=== PATIENT | female | born 1925 | race Caucasian/White ===

== ENCOUNTER 2017-01-17 10:32 | Emergency (ER) | payer MEDICARE, OTHER ==
[2017-01-17] MEDS ORDERED: SODIUM CHLORIDE 0.9% 1,000 ML IV STA (11:07)
--- NOTE | 2017-01-17 11:25 | ED ---
General Adult HPI - General Chief complaint: Fall Stated complaint: Fall Time Seen by Provider: 01/17/17 10:47 Source: EMS, RN notes reviewed Mode of arrival: EMS Limitations: altered mental status - History of Present Illness Initial comments: Patient 89-year-old female who presents emergency room today by EMS, with a chief complaint of a unwitnessed fall that occurred earlier today. Information provided by EMS stating that patient was found down next to her bed. States there was a check an approximate 45 minutes later she was found on the ground. Patient has no memory of the fall. States she remembers going to bed and sleeping. Patient at this time denies any headache. She does admit to some lower back pain and some pain into her legs bilaterally. Patient states she feels tired and sleepy. She denies any other complaints or symptoms. Patient denies any recent fever, chills, shortness of breath, chest pain, abdominal pain , nausea or vomiting, numbness or tingling, dysuria or hematuria, constipation or diarrhea, headaches or visual changes, or any other complaints. - Related Data Home Medications Medication Instructions Recorded Confirmed Aspirin EC [Ecotrin Low Dose] 81 mg PO DAILY 01/17/16 01/17/17 Lubiprostone [Amitiza] 24 mcg PO BID 01/17/16 01/17/17 sitaGLIPtin [Januvia] 50 mg PO DAILY 01/17/16 01/17/17 Cholecalciferol [Vitamin D3] 2,000 unit PO DAILY 11/17/16 01/17/17 Citalopram Hydrobromide [CeleXA] 10 mg PO DAILY@1200 11/17/16 01/17/17 Donepezil [Aricept] 10 mg PO HS 11/17/16 01/17/17 Isosorbide Mononitrate [Isosorbide 30 mg PO HS@199911/17/16 01/17/17 Mononitrate ER] LORazepam [Ativan] 0.5 mg PO BID@0800,199911/17/16 01/17/17 traMADol HCL [Ultram] 50 mg PO TID@0800,1400,199911/17/16 01/17/17 LORazepam [Ativan] 1 mg PO Q4H PRN 01/17/17 01/17/17 Lisinopril [Zestril] 10 mg PO DAILY 01/17/17 01/17/17 Magnesium Hydroxide [Milk of 2,400 mg PO HS PRN 01/17/17 01/17/17 Magnesia] Vitamin B-12 1000mcg Tab Sl 1,000 mcg SUBLINGUAL DAILY 01/17/17 01/17/17 Allergies Allergy/AdvReac Type Severity Reaction Status Date / Time alendronate sodium Allergy Unknown Verified 02/10/16 13:28 [From Fosamax] atorvastatin calcium Allergy Unknown Verified 02/10/16 13:28 [From Lipitor] Beef Containing Products Allergy Itching Verified 02/10/16 13:28 [Beef] chocolate flavor Allergy Itching Verified 02/10/16 13:28 ciprofloxacin [From Cipro] Allergy Unknown Verified 02/10/16 13:28 ciprofloxacin HCl Allergy Unknown Verified 02/10/16 13:28 [From Cipro] codeine Allergy Unknown Verified 02/10/16 13:28 diphenhydramine HCl Allergy Unknown Verified 02/10/16 13:28 [From Benadryl] hydralazine Allergy Unknown Verified 02/10/16 13:28 iodine Allergy Unknown Verified 02/10/16 13:28 latex Allergy Unknown Verified 02/10/16 13:28 morphine Allergy Unknown Verified 02/10/16 13:28 nickel Allergy Unknown Verified 02/10/16 13:28 nicotine [From Nicotrol] Allergy Unknown Verified 02/10/16 13:28 Penicillins Allergy Unknown Verified 02/10/16 13:28 Pork/Porcine Containing Allergy Itching Verified 02/10/16 13:28 Products [Pork] strawberry Allergy Itching Verified 02/10/16 13:28 Sulfa (Sulfonamide Allergy Unknown Verified 02/10/16 13:28 Antibiotics) Review of Systems ROS Statement: Those systems with pertinent positive or pertinent negative responses have been documented in the HPI. ROS Other: All systems not noted in ROS Statement are negative. Past Medical History Past Medical History: Diabetes Mellitus, Hyperlipidemia, Hypertension, Memory Impairment, Mitral Valve Prolapse (MVP), Osteoarthritis (OA) Additional Past Medical History / Comment(s): ddd lumbar region l4-l5 has gotten steroid inj in the past. rosacea,bronchitis, ulcer, hiatal hernia, constipation- partial obstruction , macular degeneration rt eye stated gets shots in her eye every 3 months History of Any Multi-Drug Resistant Organisms: None Reported Past Surgical History: Adenoidectomy, Appendectomy, Bladder Surgery, Cholecystectomy, Heart Catheterization With Stent, Hysterectomy Additional Past Surgical History / Comment(s): pt stated has a total of 5 stents , colonosocpy, rt knee arthroscopy, rt knee replacement thena revision d/t allergy to metal, cataracts Past Anesthesia/Blood Transfusion Reactions: No Reported Reaction Date of Last Stent Placement:: unk Past Psychological History: No Psychological Hx Reported Additional Psychological History / Comment(s): pt has been for 68 yers. she and her live at [facility] home. uses a wheeled/seated walker,denies any falls. Smoking Status: Never smoker Past Alcohol Use History: None Reported Past Drug Use History: None Reported - Past Family History Mother Family Medical History: Myocardial Infarction ([place]) Additional Family Medical History / Comment(s): at age 75-mi Father Family Medical History: Cancer Additional Family Medical History / Comment(s): leukemia Sister(s) Family Medical History: Cancer Additional Family Medical History / Comment(s): lung cancer Brother(s) Additional Family Medical History / Comment(s): brother age 5 from spinal mennigitits General Exam - General Exam Comments Initial Comments: General: The patient is awake and alert, in no distress, and does not appear acutely ill. Please use medication as discussed. Please follow-up with family doctor in the next 2 days of symptoms have not improved. Please return to emergency room if the symptoms increase or worsen or for any other concerns.currently C-collared resting in bed comfortably no signs of distress. Eye: Pupils are equal, round and reactive to light, extra-ocular movements are intact. No nystagmus. There is normal conjunctiva bilaterally. No signs of icterus. Ears, nose, mouth and throat: There are moist mucous membranes and no oral lesions. Neck: The neck is supple, there is no tenderness or JVD. Cardiovascular: There is a regular rate and rhythm. No murmur, rub or gallop is appreciated. Respiratory: Lungs are clear to auscultation, respirations are non-labored, breath sounds are equal. No wheezes, stridor, rales, or rhonchi. Gastrointestinal: Soft, non-distended, non-tender abdomen without masses or organomegaly noted. There is no rebound or guarding present. No CVA tenderness. Bowel sounds are unremarkable. Musculoskeletal: Normal ROM, no tenderness. Strength 5/5. Sensation intact. Pulses equal bilaterally 2+. Neurological: Patient alert and oriented to person and place. CN II-XII intact , There are no obvious motor or sensory deficits. Coordination appears grossly intact. Speech is normal. Skin: Skin is warm and dry and no rashes or lesions are noted. Psychiatric: Cooperative, appropriate mood & affect, normal judgment. Limitations: altered mental status Course Vital Signs 01/17/17 01/17/17 01/17/17 10:33 12:21 13:09 Temperature 98.5 F 97.9 F Pulse Rate 68 68 69 Respiratory 14 20 20 Rate Blood Pressure 184/79 131/59 113/89 O2 Sat by Pulse 95 94 L 96 Oximetry 01/17/17 14:30 Temperature Pulse Rate 65 Respiratory 18 Rate Blood Pressure 118/68 O2 Sat by Pulse 97 Oximetry EKG Findings - EKG Comments: EKG Findings:: EKG performed at 1129: Shows normal sinus rhythm at 60 bpm. NJ interval 182. QRS 66. QT/QTC 350/372. No acute ST changes. Medical Decision Making - Medical Decision Making Patient reexamined at this time shows no signs of distress. Patient's x-rays and CAT scans reviewed and are unremarkable. No acute abnormalities. Patient' s labs unremarkable. Her shins daughter at bedside stating that this is baseline for her. Patient is in assisted living. Patient will be discharged home advised follow-up family doctor or return to emergency room if any symptoms increase or worsen. - Lab Data Result diagrams: 01/17/17 11:27 01/17/17 11:27 Lab Results 01/17/17 01/17/17 01/17/17 Range/Units 11:27 11:27 11:27 WBC 7.9 (3.8-10.6) k/uL RBC 4.22 (3.80-5.40) m/uL Hgb 14.1 (11.4-16.0) gm/dL Hct 41.9 (34.0-46.0) % MCV 99.4 (80.0-100.0) fL MCH 33.5 (25.0-35.0) pg MCHC 33.7 (31.0-37.0) g/dL RDW 12.2 (11.5-15.5) % Plt Count 258 (150-450) k/uL Neutrophils % 64 % Lymphocytes % 27 % Monocytes % 4 % Eosinophils % 3 % Basophils % 1 % Neutrophils # 5.1 (1.3-7.7) k/uL Lymphocytes # 2.1 (1.0-4.8) k/uL Monocytes # 0.3 (0-1.0) k/uL Eosinophils # 0.2 (0-0.7) k/uL Basophils # 0.0 (0-0.2) k/uL PT (9.0-12.0) sec INR (<1.1) APTT (22.0-30.0) sec Sodium 140 (137-145) mmol/L Potassium 4.4 (3.5-5.1) mmol/L Chloride 103 (98-107) mmol/L Carbon Dioxide 26 (22-30) mmol/L Anion Gap 11 mmol/L BUN 19 H (7-17) mg/dL Creatinine 1.00 (0.52-1.04) mg/dL Est GFR (MDRD) Af Amer >60 (>60 ml/min/1.73 sqM) Est GFR (MDRD) Non-Af 52 (>60 ml/min/1.73 sqM) Glucose 108 H (74-99) mg/dL Calcium 10.2 (8.4-10.2) mg/dL Magnesium 1.7 (1.6-2.3) mg/dL Total Bilirubin 1.0 (0.2-1.3) mg/dL AST 24 (14-36) U/L ALT 32 (9-52) U/L Alkaline Phosphatase 62 (38-126) U/L Total Creatine Kinase 48 (30-135) U/L CK-MB (CK-2) 0.7 (0.0-2.4) ng/mL CK-MB (CK-2) Rel Index 1.5 Troponin I <0.012 (0.000-0.034) ng/mL Total Protein 7.6 (6.3-8.2) g/dL Albumin 4.3 (3.5-5.0) g/dL Urine Color Urine Appearance (Clear) Urine pH (5.0-8.0) Ur Specific [place] (1.001-1.035) Urine Protein (Negative) Urine Glucose (UA) (Negative) Urine Ketones (Negative) Urine Blood (Negative) Urine Nitrate (Negative) Urine Bilirubin (Negative) Urine Urobilinogen (<2.0) mg/dL Ur Leukocyte Esterase (Negative) Urine RBC (0-5) /hpf Urine WBC (0-5) /hpf Urine Mucus (None) /hpf 01/17/17 01/17/17 Range/Units 11:27 14:53 WBC (3.8-10.6) k/uL RBC (3.80-5.40) m/uL Hgb (11.4-16.0) gm/dL Hct (34.0-46.0) % MCV (80.0-100.0) fL MCH (25.0-35.0) pg MCHC (31.0-37.0) g/dL RDW (11.5-15.5) % Plt Count (150-450) k/uL Neutrophils % % Lymphocytes % % Monocytes % % Eosinophils % % Basophils % % Neutrophils # (1.3-7.7) k/uL Lymphocytes # (1.0-4.8) k/uL Monocytes # (0-1.0) k/uL Eosinophils # (0-0.7) k/uL Basophils # (0-0.2) k/uL PT 10.6 (9.0-12.0) sec INR 1.1 (<1.1) APTT 24.7 (22.0-30.0) sec Sodium (137-145) mmol/L Potassium (3.5-5.1) mmol/L Chloride (98-107) mmol/L Carbon Dioxide (22-30) mmol/L Anion Gap mmol/L BUN (7-17) mg/dL Creatinine (0.52-1.04) mg/dL Est GFR (MDRD) Af Amer (>60 ml/min/1.73 sqM) Est GFR (MDRD) Non-Af (>60 ml/min/1.73 sqM) Glucose (74-99) mg/dL Calcium (8.4-10.2) mg/dL Magnesium (1.6-2.3) mg/dL Total Bilirubin (0.2-1.3) mg/dL AST (14-36) U/L ALT (9-52) U/L Alkaline Phosphatase (38-126) U/L Total Creatine Kinase (30-135) U/L CK-MB (CK-2) (0.0-2.4) ng/mL CK-MB (CK-2) Rel Index Troponin I (0.000-0.034) ng/mL Total Protein (6.3-8.2) g/dL Albumin (3.5-5.0) g/dL Urine Color Yellow Urine Appearance Clear (Clear) Urine pH 6.5 (5.0-8.0) Ur Specific [place] 1.016 (1.001-1.035) Urine Protein Negative (Negative) Urine Glucose (UA) Negative (Negative) Urine Ketones Negative (Negative) Urine Blood Negative (Negative) Urine Nitrate Negative (Negative) Urine Bilirubin Negative (Negative) Urine Urobilinogen <2.0 (<2.0) mg/dL Ur Leukocyte Esterase Moderate H (Negative) Urine RBC 2 (0-5) /hpf Urine WBC 5 (0-5) /hpf Urine Mucus Rare H (None) /hpf Disposition Clinical Impression: Fall Disposition: HOME SELF-CARE Condition: Good Instructions: Fall Prevention for Older Adults (ED) Additional Instructions: Please follow-up the family doctor as discussed and return to emergency room if any symptoms increase or worsen or for any other concerns. Time of Disposition: 15:22
[2017-01-17 11:47] LABS: Basophils % (A) 1 %; CH 33.6; Eosinophils # (A) 0.2 k/uL (0-0.7); Eosinophils % (A) 3 %; HCT 41.9 % (34.0-46.0); HDW 2.27; HGB 14.1 gm/dL (11.4-16.0); Luc # (Auto) 0.21; Luc % (Auto) 3; Lymphocytes # (A) 2.1 k/uL (1.0-4.8); Lymphocytes % (A) 27 %; MCH 33.5 pg (25.0-35.0); MCHC 33.7 g/dL (31.0-37.0); MCV 99.4 fL (80.0-100.0); Mean Platelet Volume 6.9; Monocytes # (A) 0.3 k/uL (0-1.0); Monocytes % (A) 4 %; Neutrophils # (A) 5.1 k/uL (1.3-7.7); Neutrophils % (A) 64 %; RBC 4.22 m/uL (3.80-5.40); RDW 12.2 % (11.5-15.5); WBC 7.9 k/uL (3.8-10.6); WBC (Perox) 8.02
[2017-01-17 11:54] LABS: ALT 32 U/L (9-52); AST 24 U/L (14-36); Alkaline Phosphatase 62 U/L (38-126); Anion Gap 11 mmol/L; Blood Urea Nitrogen 19 mg/dL (7-17); Calcium 10.2 mg/dL (8.4-10.2); Carbon Dioxide 26 mmol/L (22-30); Chloride 103 mmol/L (98-107); Glucose 108 mg/dL (74-99); Magnesium 1.7 mg/dL (1.6-2.3); Non-African American GFR(MDRD) 52 (>60 ml/min/1.73 sqM); Potassium 4.4 mmol/L (3.5-5.1); Sodium 140 mmol/L (137-145); Total Protein 7.6 g/dL (6.3-8.2)
[2017-01-17 11:58] LABS: INR 1.1 (<1.1); Partial Thromboplastin Time 24.7 sec (22.0-30.0); Prothrombin Time 10.6 sec (9.0-12.0)
[2017-01-17 12:12] LABS: Creatine Kinase 48 U/L (30-135)
[2017-01-17 12:26] LABS: Creatine Kinase MB 0.7 ng/mL (0.0-2.4); Troponin I <0.012 ng/mL (0.000-0.034)
--- NOTE | 2017-01-17 13:13 | CT ---
EXAMINATION TYPE: CT brain jessi landon con DATE OF EXAM: 01/17/2017 11:53 AM COMPARISON: Previous CT scan of the brain dated 06/14/2009 HISTORY: Fall today with possible injury CT DLP: 1392.2 mGycm Automated exposure control for dose reduction was used. TECHNIQUE: CT scan of the brain and cervical spine are performed without contrast. FINDINGS: Brain: There are generalized changes of sulcal prominence and ventriculomegaly, compatible with atrop hic change. There is diffuse periventricular white matter lucency, compatible with chronic white vivi er ischemic change. There is no acute focal lesion, mass effect or midline shift identified. I do not see evidence of intracranial blood. There is vascular calcification present. Visualized portions of the paranasal sinuses and mastoids are clear. IMPRESSION: 1. NO ACUTE INTRACRANIAL ABNORMALITY. 2. ATROPHIC CHANGE. 3. CHRONIC WHITE MATTER ISCHEMIC CHANGE. Cervical spine: Visualized portions of the lungs are clear. There is some shotty cervical adenopathy. Prevertebral soft tissues are otherwise normal. Vertebral body height and alignment are maintained. Atlantoaxial relationships are normal. No fractur es are seen. There is degenerative disc disease, hypertrophic spondylosis and uncovertebral joint dis ease at C3-4, C4-5 and C5-6. IMPRESSION: 1. NO ACUTE OSSEOUS LESION. 2. DEGENERATIVE CHANGE.
--- NOTE | 2017-01-17 13:59 | XR ---
EXAMINATION TYPE: XR chest 2V DATE OF EXAM: 01/17/2017 1:54 PM COMPARISON: NONE INDICATION: 11/17/2016 TECHNIQUE: Single frontal view of the chest is obtained. FINDINGS: The heart size is normal. The pulmonary vasculature is normal. The lungs are clear. IMPRESSION: 1. No acute pulmonary process.
--- NOTE | 2017-01-17 14:01 | XR ---
EXAMINATION TYPE: XR lumbar spine 2 or 3V DATE OF EXAM: 01/17/2017 1:54 PM COMPARISON: NONE HISTORY: Pain, fall TECHNIQUE: 3 view lumbar spine FINDINGS: Scoliosis present with convexity to left centered at L3. There 5 lumbar-type tubal bodies. The pedicles are intact. There is a grade 1 spondylolisthesis of L4 anterior and L5. There is disc sp darren narrowing L3-4 L4-5. Mild narrowing of the L1-L2 space may be present. Spondylosis is present. Va scular calcifications within the aorta. IMPRESSION: 1. Degenerative disc changes greatest at L4-5 with a grade 1 spondylolisthesis.
--- NOTE | 2017-01-17 14:02 | XR ---
EXAMINATION TYPE: XR Hip Bilateral and AP pelvis DATE OF EXAM: 01/17/2017 1:54 PM COMPARISON: NONE HISTORY: Fall, pain TECHNIQUE: Bilateral hips supplemented with an AP pelvis FINDINGS: Femoral heads articulate with the acetabulum. No acute fractures are evident. Sacroiliac shiv int degenerative changes are present. Symphysis pubis is normal. Normal bowel gas is present. IMPRESSION: 1. Unremarkable pelvis and hips
[2017-01-17 15:14] LABS: Appearance,Urine Clear (Clear); Bilirubin,Urine Negative (Negative); Glucose,Urine (UA) Negative (Negative); Ketones,Urine Negative (Negative); Leukocyte Esterase,Urine Moderate (Negative); Mucus,Urine Rare /hpf; Nitrite,Urine Negative (Negative); PH, Urine 6.5 (5.0-8.0); Particle Count 1930; Protein,Urine Negative (Negative); RBC,Urine 2 /hpf (0-5); Specific Gravity,Urine 1.016 (1.001-1.035); UA Billing (MACRO vs. MICRO) MICRO; Urobilinogen,Urine <2.0 mg/dL (<2.0); WBC,Urine 5 /hpf (0-5)
[2017-01-17 15:46] VITALS: BP 112/75; PULSE 98; RESP 14; TEMP 97
== END 2017-01-17 16:33 | disposition home or self-care (01) ==
LOC: SUPCPDRO 10:32 → EC 10:32
DX: M54.5 Low back pain (principal); M79.605 Pain in left leg; M79.604 Pain in right leg; R41.82 Altered mental status, unspecified; F03.90 Unspecified dementia, unspecified severity, without behavioral disturbance, psychotic disturbance, mood disturbance, and anxiety; F22 Delusional disorders; R29.6 Repeated falls; W06.XXXA Fall from bed, initial encounter; Z91.02 Food additives allergy status; Z79.82 Long term (current) use of aspirin; Z79.899 Other long term (current) drug therapy; Z95.5 Presence of coronary angioplasty implant and graft; Z88.0 Allergy status to penicillin; Z88.5 Allergy status to narcotic agent; Z88.2 Allergy status to sulfonamides; Z88.8 Allergy status to other drugs, medicaments and biological substances; Z91.040 Latex allergy status
CPT/HCPCS: 36415; 70450; 71020; 72100; 72125; 73521; 80053; 81001; 82550; 82553; 83735; 84484; 85025; 85610; 85730; 87086; 93005; 96360; 96361; 99285

== ENCOUNTER 2017-01-22 15:08 | Inpatient (IN) | payer MEDICARE, OTHER ==
[2017-01-22 16:52] LABS: Glucose,Whole Blood 134 mg/dL (75-99)
[2017-01-22] MEDS ORDERED: MAGNESIUM HYDROXIDE 2,400 MG/10 ML CUP PO PRN (17:15)
[2017-01-22] MEDS ORDERED: ACETAMINOPHEN TAB 325 MG TAB PO PRN (17:38)
[2017-01-22] MEDS: SODIUM CHLORIDE 0.9% 1,000 ML IV SCH (17:40)
[2017-01-22 18:39] LABS: CH 33.8; CHCM 33.2; HDW 2.26; MCH 33.2 pg (25.0-35.0); MCHC 32.5 g/dL (31.0-37.0); MCV 102.3 fL (80.0-100.0); Macrocytosis Slight; Mean Platelet Volume 7.9; RBC 3.91 m/uL (3.80-5.40); RDW 12.2 % (11.5-15.5); WBC 7.9 k/uL (3.8-10.6)
[2017-01-22 18:52] LABS: ALT 30 U/L (9-52); AST 18 U/L (14-36); Alkaline Phosphatase 65 U/L (38-126); Anion Gap 11 mmol/L; Blood Urea Nitrogen 15 mg/dL (7-17); Calcium 9.7 mg/dL (8.4-10.2); Carbon Dioxide 24 mmol/L (22-30); Chloride 106 mmol/L (98-107); Glucose 102 mg/dL (74-99); Non-African American GFR(MDRD) 59 (>60 ml/min/1.73 sqM); Potassium 4.2 mmol/L (3.5-5.1); Sodium 141 mmol/L (137-145); Total Bilirubin 0.5 mg/dL (0.2-1.3); Total Protein 7.1 g/dL (6.3-8.2)
--- NOTE | 2017-01-22 19:19 | XR ---
EXAMINATION TYPE: XR shoulder complete LT DATE OF EXAM: 01/22/2017 7:08 PM COMPARISON: NONE HISTORY: Shoulder pain TECHNIQUE: 3 views FINDINGS: I see no fracture nor dislocation. Joint spaces are normal. There are no pathologic calcifi cations. IMPRESSION: Negative left shoulder exam.
--- NOTE | 2017-01-22 19:20 | XR ---
EXAMINATION TYPE: XR humerus RT DATE OF EXAM: 01/22/2017 7:08 PM COMPARISON: NONE HISTORY: Shoulder pain right arm pain TECHNIQUE: 2 views FINDINGS: I see no fracture nor dislocation. Elbow joint and shoulder joint appear intact. IMPRESSION: Negative right humerus exam.
--- NOTE | 2017-01-22 19:22 | XR ---
EXAMINATION TYPE: XR chest 2V DATE OF EXAM: 01/22/2017 7:08 PM COMPARISON: 01/17/2017 HISTORY: Recent falls. Chest pain. TECHNIQUE: Frontal and lateral views of the chest are obtained. FINDINGS: There is no heart failure nor confluent pneumonic infiltrate. There are no hilar masses. H eart size is normal. Thoracic aorta is atheromatous. There is no pleural effusion. IMPRESSION: No active cardiopulmonary disease. No change. No compression fracture seen.
[2017-01-22 19:46] LABS: Vitamin B12 >1000 pg/mL
--- NOTE | 2017-01-22 19:46 | CT ---
EXAMINATION TYPE: CT brain jessi wo con DATE OF EXAM: 01/22/2017 6:52 PM COMPARISON: 01/17/2017 HISTORY: Multiple falls CT DLP: 1580 mGycm Automated exposure control for dose reduction was used. TECHNIQUE: CT scan of the head and cervical spine are performed without contrast. FINDINGS: There is cerebral cortical atrophy. There is no mass effect nor midline shift. There is n o sign of intracranial hemorrhage. The calvarium is intact. The cervical vertebra have normal alignment. There is moderate narrowing of the disc spaces from C4 t o C7 with spurring of the endplates. Facet joints are intact. The skull base is intact. There is no s ign of a fracture. There is no evidence of a paraspinal mass. IMPRESSION: Cerebral atrophy and mild chronic small vessel ischemia. Mild normal pressure type hydrocephalus. No change compared to last exam. Moderate spondylosis in the mid and lower cervical spine. No fracture. No change.
[2017-01-22] MEDS: ISOSORBIDE MONONITRATE ER 30 MG TAB.ER.24H PO SCH (22:09)
[2017-01-22] MEDS: DONEPEZIL 10 MG TAB PO SCH (22:09)
[2017-01-22] MEDS: traMADol 50 MG TAB PO SCH (22:09)
[2017-01-22 22:59] LABS: Appearance,Urine Clear (Clear); Bilirubin,Urine Negative (Negative); Glucose,Urine (UA) Negative (Negative); Ketones,Urine Negative (Negative); Leukocyte Esterase,Urine Negative (Negative); Nitrite,Urine Negative (Negative); Protein,Urine Negative (Negative); Specific Gravity,Urine 1.008 (1.001-1.035); UA Billing (MACRO vs. MICRO) CHEM; Urobilinogen,Urine <2.0 mg/dL (<2.0)
[2017-01-23 08:01] LABS: Glucose,Whole Blood 95 mg/dL (75-99)
[2017-01-23] MEDS: LISINOPRIL 10 MG TAB PO SCH (08:17)
[2017-01-23] MEDS: ASPIRIN 81 MG CHEW PO SCH (08:17)
[2017-01-23] MEDS: traMADol 50 MG TAB PO SCH ×3 (08:18→21:16)
[2017-01-23] MEDS: LINAGLIPTIN 5 MG TABLET PO SCH (08:18)
[2017-01-23] MEDS: SODIUM CHLORIDE 0.9% 1,000 ML IV SCH (12:21)
[2017-01-23] MEDS: CITALOPRAM HYDROBROMIDE 10 MG TAB PO SCH (12:22)
[2017-01-23] MEDS: CHOLECALCIFEROL 1,000 UNIT TAB PO SCH (12:22)
[2017-01-23] MEDS: CYANOCOBALAMIN 500 MCG TAB PO SCH (12:22)
--- NOTE | 2017-01-23 15:56 | P.PN ---
Subjective 89-year-old female being seen. Patient is oriented to self only. Pleasant cooperative. Resting in bed. Physical therapy indicates that the patient needs maximum assist of 2 to stand or sit. Patient is not able to ambulate. Patient requires moderate assistance to maintain a standing balance. Patient has a tendency to lean. 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 She does not consistently follow simple commands. Patient reportedly has had episodes at home of frequent falling. Patient needs assistance with all ADLs. Patient needs a moderate assist of 2 to attempt to use assistive device such as rolling walker patient has poor comprehension of simple task Objective - Vital Signs Vital signs: Vital Signs Temp 97.1 F L 01/23/17 07:00 Pulse 64 01/23/17 15:37 Resp 18 01/23/17 15:37 BP 135/68 01/23/17 07:00 Pulse Ox 96 01/23/17 07:00 Intake & Output 01/22/17 01/23/17 01/23/17 18:59 06:59 18:59 Intake Total 240 Balance 240 Weight 52.5 kg Intake: Oral 240 Other: Voiding Method Bedside Commode Bedside Commode Bedside Commode Diaper Diaper Diaper Incontinent Incontinent Incontinent # Voids 1 2 1 # Bowel Movements 0 - Exam GENERAL APPEARANCE: 89-year-old female patient is alert, oriented to self only, in no acute distress. Cooperative pleasant does not consistently follow simple commands VITAL SIGNS: Reviewed HEENT: Head is normocephalic and atraumatic. Pupils are equal and reactive. The nares are patent. Oropharynx is clear without lesions. NECK: Supple without lymphadenopathy. Traches midline. HEART: S1, S2. Regular rate and rhythm. No murmur noted LUNGS: No crackles or wheezes are heard. On room air sats are 97% ABDOMEN: Soft, nontender, nondistended with good bowel sounds. No peritoneal signs. No palpable organomegaly or masses. EXTREMITIES: Normal skin color and turgor. No cyanosis, rash, ulceration, clubbing or edema. Radial pedal pulses are 2/4 bilaterally. Will move all extremities NEUROLOGICAL: No focal deficits. Strength and sensation are grossly intact. - Labs CBC & Chem 7: 01/22/17 18:05 01/22/17 18:05 Labs: Abnormal Lab Results - Last 24 Hours (Table) 01/22/17 01/22/1717 Range/Units 16:50 18:05 18:05 MCV 102.3 H (80.0-100.0) fL Glucose 102 H (74-99) mg/dL POC Glucose (mg/dL) 134 H (75-99) mg/dL Microbiology - Last 24 Hours (Table) 01/22/17 21:35 Urine Culture - Preliminary Urine,Voided Assessment and Plan Plan: Impression History of frequent falls Debilitated with limited mobility likely chronic Dementia with no behavior disturbance with cognitive impairment Inability to participate in ADLs due to dementia likely progressive Requires moderate assist with all ADL Physical debility gait imbalance Type 2 diabetes non-insulin Hypertension Depressive disorder nonspecified Plan PT OT eval Fall precautions Resume home meds as appropriate tin recovery worker to pursue the discharge plan possible transfer to subacute rehab DVT and GI prophylaxis The above dictated assessment and findings were discussed with dr chang . Impression and the plan of care have been dictated as directed. Mona Conway nurse practitioner acting as a scribe for dr chang
[2017-01-23] MEDS ORDERED: HEPARIN SODIUM,PORCINE 5,000 UNIT/ML 1 ML VIAL SQ SCH (16:00)
--- NOTE | 2017-01-23 19:40 | HP ---
DATE OF ADMISSION: 01/22/2017 CHIEF COMPLAINT: An 89-year-old white female with altered mental status. HISTORY OF PRESENT ILLNESS: This is 89-year-old white female presented with altered mental status after daily falls at home for the past 3 or 4 days with head concussion when she was not thinking straight or giving appropriate answers. She is unable to care for herself at home, unable to ambulate by herself and two-person assist. Fall every day due to altered mental status with head contusion and neck contusion. She was admitted to the hospital. CAT scan of the head and neck are ordered and neurologic consult is appreciated and ordered. She is unable to care for herself at home in any way and family unable to care for her anymore. They request placement into a rehab center at this time. She has a history of separate dementia, coronary artery disease, diabetes mellitus, hypertension, osteoarthritis, depression. ALLERGIES: SULFA STRAWBERRIES, PORK, PENICILLIN. NICOTINE, ( ) MORPHINE, LATEX, IODINE, HYDRALAZINE AND BENADRYL, CODEINE AND CIPRO, CHOCOLATE, BEEF, ATORVASTATIN AND FOSAMAX. 1. MEDICATIONS INCLUDE: 2. Zestril 10 mg daily. 3. Tradjenta 5 daily. 4. Imdur 30 mg daily. 5. Aricept 10 daily. 6. Celexa 10 daily. 7. Vitamin D 2000 daily. 8. Aspirin 81 daily. 9. Tramadol 50 t.i.d. REVIEW OF SYSTEMS: PSYCHIATRY: Alert and oriented x1, does talk and giving answers unclear at times what she is talking about. Not responding directly to the question and answering different questions. NEUROLOGIC: She can move her 4 extremities. She is weak 3/5 strength x4 extremities. INTEGUMENT: She has some various bruising over extremities. NECK: Supple. Decreased carotid sounds. Ophthalmologic: Pupils equal, round and reactive to light. VASCULAR: Normal dorsalis pedis, posterior tibial and radial pulse. Get up and go is greater than 30 seconds. 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 CARDIOVASCULAR: S1, S2; 2/6 systolic ejection murmur. LUNGS: Decreased breath sounds x4. Rales at the bases. VITAL SIGNS: Temperature 96.1. Blood pressure 116/70, O2 is 96% to 97% on room air. Pulse in the 60s. ASSESSMENT: 1. Altered mental status. 2. Concussion. 3. Cervical contusion. 4. Frequent falls. 5. Inability to perform ADLs/ general debility. 6. Needs PT, OT half-way placement. 7. Unable to care for herself. 8. Diabetes mellitus. 9. Hypertension. 10. Coronary artery disease. 11. Dementia. PLAN: Neurology consult was ordered. CT scan of the head and cervical spine has been ordered. By Dr. Russ's recommendation she will need half-way placement. She is unable to ambulate on her own or take care of herself and she has frequent falls on a daily basis with cervical contusion and concussion. Rule out intracranial bleed, rule out cervical injury. Please see further orders on the chart.
[2017-01-23] MEDS: DONEPEZIL 10 MG TAB PO SCH (21:16)
[2017-01-23] MEDS: ISOSORBIDE MONONITRATE ER 30 MG TAB.ER.24H PO SCH (21:17)
[2017-01-23] MEDS: FAMOTIDINE 20 MG TAB PO SCH (22:03)
[2017-01-24] MEDS: LINAGLIPTIN 5 MG TABLET PO SCH (08:00)
[2017-01-24 09:31] LABS: Cholesterol 207 mg/dL (<200); HDL Cholesterol 39 mg/dL (40-60); Triglycerides 230 mg/dL (<150)
[2017-01-24] MEDS: traMADol 50 MG TAB PO SCH ×3 (09:55→21:32)
[2017-01-24] MEDS: CHOLECALCIFEROL 1,000 UNIT TAB PO SCH (09:56)
[2017-01-24] MEDS: CYANOCOBALAMIN 500 MCG TAB PO SCH (09:56)
[2017-01-24] MEDS: CITALOPRAM HYDROBROMIDE 10 MG TAB PO SCH (09:56)
--- NOTE | 2017-01-24 09:57 | CONS ---
DATE OF CONSULTATION: 01/23/2017 CHIEF COMPLAINT: Altered mental status. HISTORY OF PRESENT ILLNESS: Mrs. Toribio is a pleasant, 89-year-old, female who is being evaluated today on 01/23/17 by the neurology service per the request of Dr. Ryder Hui for altered mental status. The patient was evaluated in the emergency room at [facility] after she was brought in for confusion. The patient does have history of Alzheimer's dementia, but she was more confused than usual. She was also having difficulty ambulating requiring maximum assist to stand up and walk. She has been having frequent falls and did injure her upper extremities with multiple falls. X-rays of the left shoulder and the right humerus were negative. A CT scan of the brain was done, which showed generalized atrophy and small vessel ischemic changes. There was mild changes consistent with normal pressure hydrocephalus. The patient has been having some urinary incontinence but this is not new according to the family. A CT scan of the cervical spine was done, which showed moderate spondylosis with no fracture seen. Her CBC, urinalysis, TSH, vitamin B12 level, and comprehensive metabolic profile were all reviewed and were within normal limits. At the time of my evaluation, she is lying in her bed and appears to be in no acute distress. Her family is at bedside and they report mild improvements in her symptoms since she arrived to the hospital as far as confusion is concerned. She is still having ambulatory issues. PAST MEDICAL HISTORY: Alzheimer's dementia, diabetes, hypertension, degenerative joint disease, depression. SOCIAL HISTORY: She denies any tobacco, alcohol or drug use. FAMILY HISTORY: Noncontributory. HOME MEDICATIONS: Reviewed in the chart. ALLERGIES: Multiple allergies reviewed in the chart. REVIEW OF SYSTEMS: CONSTITUTIONAL: Positive for fatigue. EYES: Positive for chronic diminished vision. ENT: Positive for chronic diminished hearing. CARDIOVASCULAR: Negative. RESPIRATORY: Negative. NEUROLOGICAL: As mentioned above. She denies any lateralizing numbness or weakness. GASTROINTESTINAL: Negative. GENITOURINARY: As mentioned above. MUSCULOSKELETAL: As mentioned above. DERMATOLOGICAL: Negative. ENDOCRINE: Positive for diabetes. PSYCHIATRIC: Positive for history of depression. PHYSICAL EXAM: Vital signs show a temperature of 97.0, pulse 64, respirations 18, blood pressure 131/73. GENERAL APPEARANCE: The patient is a well-developed, elderly female who appears to be in no acute distress. HEENT: Normocephalic, atraumatic, no facial asymmetry is seen. Neck is supple with no masses felt. Tenderness to palpation is felt along the posterior lower cervical spine. CARDIOVASCULAR: Regular rate and rhythm. ABDOMEN: Nontender, nondistended. Extremities showed no edema or clubbing. NEUROLOGICAL EXAM: The patient is alert, awake, and oriented to person and place. She could not recall the year. She moves all 4 extremities to command with no lateralizing weakness seen. She does have generalized weakness that is mild. Sensory exam was normal to light touch in all 4 extremities. Mild postural tremors are seen. No facial asymmetry is noticed on cranial nerve testing. IMPRESSION: 1. Altered mental status. 2. Acute on top of chronic encephalopathy. 3. Alzheimer's dementia. 4. Cervicalgia. 5. Gait instability. 6. Recurrent falls. RECOMMENDATIONS: The patient's altered mental status is improving as she is closer to her baseline. She is oriented to person and place at the time of my evaluation. The patient does have history of chronic encephalopathy with Alzheimer's dementia. Continue IV hydration as tolerated. An EEG has been ordered. I did review her CT scan of the brain, which showed no acute findings. She does have evidence of mild case of normal pressure hydrocephalus, but the patient has been having urinary incontinence for a long time according to the family. In the outpatient setting, I will consider performing a large-volume drainage lumbar puncture to monitor any improvement especially because she has been having gait instability more recently. I do believe her recent falls are due to her recently been started on benzodiazepines. I recommend discontinuing Ativan as this has been linked to frequent falls in the elderly population. Physical therapy will be consulted. Continue aspirin for her small vessel ischemic disease. Continue neuro checks. I will continue to follow with you. Further recommendations to follow. Thank you, Dr. Hui, for allowing me to participate in the care of your patient. If you have any questions, please call free to contact me.
[2017-01-24] MEDS: ASPIRIN 81 MG CHEW PO SCH (09:58)
[2017-01-24] MEDS: LISINOPRIL 10 MG TAB PO SCH (09:58)
[2017-01-24 11:01] LABS: Hemoglobin A1C 5.7 % (4.2-6.1)
--- NOTE | 2017-01-24 11:21 | P.PN ---
Subjective 89-year-old female being seen with the attending on rounds this morning is awake and alert oriented to person and place. Has no recall of event. There is no lateralizing weakness noted. Patient currently is resting in bed. The discharge plan is in progress patients being evaluated for subacute rehab PT OT eval has been initiated. Patient's been seen by neurology. CAT scan of the brain showed no acute findings does have evidence of mild normal pressure hydrocephalus neurology believes her recent falls are due to her recently been started on benzodiazepine. The recommending stopping the Ativan as this has been linked to frequent falls in the elderly population. Additionally they recommend considering performing a large-volume drainage of the lumbar spine to monitor any improvement especially she's been having gait and stable mobility multiple recently Objective - Vital Signs Vital signs: Vital Signs Temp 96.6 F L 01/24/17 07:00 Pulse 59 L 01/24/17 07:00 Resp 20 01/24/17 07:00 BP 132/73 01/24/17 07:00 Pulse Ox 96 01/24/17 07:00 Intake & Output 01/23/17 01/24/17 01/24/17 18:59 06:59 18:59 Intake Total 240 500 240 Balance 240 500 240 Intake: Oral 240 500 240 Other: Voiding Method Bedside Commode Diaper Diaper Incontinent Incontinent # Voids 1 2 # Bowel Movements 0 - Exam GENERAL APPEARANCE: 89-year-old female patient is alert, oriented to self and place, in no acute distress. Cooperative pleasant does not consistently follow simple commands VITAL SIGNS: Reviewed HEENT: Head is normocephalic and atraumatic. Pupils are equal and reactive. The nares are patent. Oropharynx is clear without lesions. NECK: Supple without lymphadenopathy. Traches midline. HEART: S1, S2. Regular rate and rhythm. No murmur noted denying chest pain LUNGS: No crackles or wheezes are heard. On room air sats are 97% no cough noted no shortness breath with conversation ABDOMEN: Soft, nontender, nondistended with good bowel sounds. No peritoneal signs. No palpable organomegaly or masses. Incontinent a urine EXTREMITIES: Normal skin color and turgor. No cyanosis, rash, ulceration, clubbing or edema. Radial pedal pulses are 2/4 bilaterally. Will move all extremities NEUROLOGICAL: No focal deficits. Strength and sensation are grossly intact. - Labs CBC & Chem 7: 01/22/17 18:05 01/22/17 18:05 Labs: Abnormal Lab Results - Last 24 Hours (Table) 01/22/17 01/24/17 Range/Units 18:05 08:55 Triglycerides 230 H (<150) mg/dL Cholesterol 207 H (<200) mg/dL LDL Cholesterol, Calc 122 H (0-99) mg/dL HDL Cholesterol 39 L (40-60) mg/dL RBC Folate 877 H (280 - 791) ng/mL Microbiology - Last 24 Hours (Table) 01/22/17 21:35 Urine Culture - Preliminary Urine,Voided Assessment and Plan Plan: Impression History of frequent falls Debilitated with limited mobility likely chronic Alzheimer Dementia with no behavior disturbance with cognitive impairment Inability to participate in ADLs due to dementia likely progressive Requires moderate assist with all ADL Physical debility gait imbalance Type 2 diabetes non-insulin Hypertension Depressive disorder nonspecified Acute on chronic encephalopathy CAT scan of the brain evidence of mild case of normal pressure hydrocephalus Recent falls likely due to recently been started on benzodiazepine contributing to the frequent falls in the elderly population CAT scan of the brain small vessel ischemia disease Plan PT OT eval Fall precautions Resume home meds as appropriate mat worker to pursue the discharge plan possible transfer to subacute rehab DVT and GI prophylaxis No benzodiazepine The above dictated assessment and findings were discussed with dr chang . Impression and the plan of care have been dictated as directed. Mona Conway nurse practitioner acting as a scribe for dr chang
[2017-01-24] MEDS: SODIUM CHLORIDE 0.9% 1,000 ML IV SCH (15:35)
--- NOTE | 2017-01-24 16:44 | P.PN ---
Subjective Principal diagnosis: Patient is a pleasant 89-year-old female who is being followed by the neurology service for altered mental status. Patient was brought to the emergency room with difficulty ambulating and mental confusion. Patient does have history of Alzheimer's dementia. Computed tomography scan of the brain was done which showed generalized atrophy and small vessel ischemic changes. CT also revealed mild changes consistent with normal pressure hydrocephalus. At the time of my evaluation, patient is resting in bed and appears to be in no acute distress. Objective - Vital Signs Vital signs: Vital Signs Temp 98.1 F 01/24/17 15:00 Pulse 69 01/24/17 15:00 Resp 20 01/24/17 15:00 BP 121/71 01/24/17 15:00 Pulse Ox 95 01/24/17 15:00 Intake & Output 01/23/17 01/24/17 01/24/17 18:59 06:59 18:59 Intake Total 240 500 480 Balance 240 500 480 Intake: Oral 240 500 480 Other: Voiding Method Bedside Commode Diaper Diaper Diaper Incontinent Incontinent Incontinent # Voids 1 2 3 # Bowel Movements 0 0 - Exam PHYSICAL EXAM: GENERAL APPEARANCE: Patient is a well-developed, female who appears to be in no acute distress. HEENT: Normocephalic, atraumatic, no facial asymmetry is seen. Neck is supple with no masses felt. CARDIOVASCULAR: Regular rate and rhythm. ABDOMEN: Nontender, nondistended. EXTREMITIES: Show no edema or clubbing. NEUROLOGICAL EXAM: Patient is awake, alert, and oriented to person and place. Patient could not tell me the year. Patient moves all 4 extremities on command with no lateralizing weakness seen. Sensory exam is normal to light touch in all 4 extremities. No facial asymmetry is seen on cranial nerve testing. Mild postural tremors are noted. No seizure-like activity is seen. - Labs CBC & Chem 7: 01/22/17 18:05 01/22/17 18:05 Labs: Abnormal Lab Results - Last 24 Hours (Table) 01/22/17 01/24/17 Range/Units 18:05 08:55 Triglycerides 230 H (<150) mg/dL Cholesterol 207 H (<200) mg/dL LDL Cholesterol, Calc 122 H (0-99) mg/dL HDL Cholesterol 39 L (40-60) mg/dL RBC Folate 877 H (280 - 791) ng/mL Microbiology - Last 24 Hours (Table) 01/22/17 21:35 Urine Culture - Final Urine,Voided Assessment and Plan Plan: Pressure and: 1. Altered mental status 2. Acute on chronic encephalopathy. 3. Alzheimer's dementia 4. Cervicalgia 5. Gait instability 6. Recurrent falls Recommendations: Patient's altered mental status is improving. As previously mentioned, patient does have history of chronic encephalopathy with Alzheimer's dementia. EEG was done and results are pending. Her computed tomography scan of the brain did show evidence of mild normal pressure hydrocephalus. This can be worked up further in the outpatient setting. She may need a large volume drainage lumbar puncture and monitoring for improvement in gait disturbance. I recommend continuing to hold benzodiazepines. Continue with physical therapy. Continue aspirin for small vessel ischemic disease. Continue neurological checks. I will continue to follow with you. Further recommendations to follow. I performed an examination of the patient and discussed the management with the CIGAR BRANDER. I have reviewed the CIGAR BRANDER notes and agree with the findings and plan of care.
[2017-01-24] MEDS: DONEPEZIL 10 MG TAB PO SCH (20:57)
[2017-01-24] MEDS: FAMOTIDINE 20 MG TAB PO SCH (20:57)
[2017-01-24] MEDS: ISOSORBIDE MONONITRATE ER 30 MG TAB.ER.24H PO SCH (21:33)
[2017-01-25] MEDS: SODIUM CHLORIDE 0.9% 1,000 ML IV SCH ×2 (05:00→20:00)
[2017-01-25] MEDS: ASPIRIN 81 MG CHEW PO SCH (08:35)
[2017-01-25] MEDS: traMADol 50 MG TAB PO SCH ×3 (08:36→20:01)
[2017-01-25] MEDS: LISINOPRIL 10 MG TAB PO SCH (08:36)
[2017-01-25] MEDS: LINAGLIPTIN 5 MG TABLET PO SCH (08:36)
--- NOTE | 2017-01-25 09:45 | P.DS ---
Providers Date of admission: 01/22/17 16:01 Expected date of discharge: 01/25/17 Attending physician: Ryder Hui Consults: 01/22/17 17:27 Consult Physician Stat Consulting Provider: Yash Russ Consult Reason/Comments: encephalopathy Do you want consulting provider notified?: Yes Primary care physician: [facility] Course: 89-year-old female presented with altered mental status with a history of daily falls at home for the past 3-4 days. According to the family patient has not been able to care for herself at home was not able to ambulate takes the assist of 2 people. According to the family the patient has been falling frequently .CAT scan of the brain showed no acute findings does have evidence of mild normal pressure hydrocephalus neurology believes her recent falls are due to her recently been started on benzodiazepine. The recommending stopping the Ativan as this has been linked to frequent falls in the elderly population. Additionally they recommend considering performing a large-volume drainage of the lumbar spine to monitor any improvement especially she's been having gait and stable mobility multiple episodes of falling. Recommended continuing aspirin for small vessel ischemic disease. Patient was seen by physical and occupational therapy was recommended subacute rehab with fall precautions Patient was felt to be hemodynamically stable and appropriate proceed with a transfer to the [facility] facility Patient has been pleasant cooperative with no behavior disturbance Impression History of frequent falls Debilitated with limited mobility likely chronic Alzheimer Dementia with no behavior disturbance with cognitive impairment Inability to participate in ADLs due to dementia likely progressive Requires moderate assist with all ADL Physical debility gait imbalance Type 2 diabetes non-insulin Hypertension Depressive disorder nonspecified Acute on chronic encephalopathy CAT scan of the brain evidence of mild case of normal pressure hydrocephalus Recent falls likely due to recently been started on benzodiazepine contributing to the frequent falls in the elderly population CAT scan of the brain small vessel ischemia disease The above dictated assessment and findings were discussed with Dr. Hui]. Impression and the plan of care have been dictated as directed. Mona Conway nurse practitioner acting as a scribe for Dr. Hui Plan - Discharge Summary New Discharge Prescriptions: traMADol HCl [Ultram] 50 mg PO TID@0800,1400,2000 PRN #30 tab PRN Reason: Mild Pain Discharge Medication List Aspirin EC [Ecotrin Low Dose] 81 mg PO DAILY@0800 01/17/16 [History] Lubiprostone [Amitiza] 24 mcg PO BID@0800,199901/17/16 [History] sitaGLIPtin [Januvia] 50 mg PO DAILY@0801/17/16 [History] Cholecalciferol [Vitamin D3] 2,000 unit PO DAILY 11/17/16 [History] Citalopram Hydrobromide [CeleXA] 10 mg PO DAILY@1200 11/17/16 [History] Donepezil [Aricept] 10 mg PO HS@199911/17/16 [History] Isosorbide Mononitrate [Isosorbide Mononitrate ER] 30 mg PO HS@199911/17/16 [ History] traMADol HCL [Ultram] 50 mg PO TID@0800,1399,199911/17/16 [History] Lisinopril [Zestril] 10 mg PO DAILY@0800 01/17/17 [History] Magnesium Hydroxide [Milk of Magnesia] 2,400 mg PO HS PRN 01/17/17 [History] Vitamin B-12 1000mcg Tab Sl 1,000 mcg SUBLINGUAL DAILY@0801/17/17 [History] Acetaminophen Tab [Tylenol] 325 mg PO TID@0800,1399,199901/22/17 [History] Acetaminophen [Tylenol] 325 mg PO Q6H PRN 01/22/17 [History] traMADol HCl [Ultram] 50 mg PO TID@0800,1399,1999 PRN #30 tab 01/25/17 [Rx] Follow up Appointment(s)/Referral(s): Yash Russ MD [STAFF PHYSICIAN] - 1 Week Ryder Hui MD [Primary Care Provider] - 1 Week Discharge Disposition: TRANSFER TO SNF/ECF
[2017-01-25] MEDS: CHOLECALCIFEROL 1,000 UNIT TAB PO SCH (12:00)
[2017-01-25] MEDS: CITALOPRAM HYDROBROMIDE 10 MG TAB PO SCH (12:00)
[2017-01-25] MEDS: CYANOCOBALAMIN 500 MCG TAB PO SCH (12:00)
[2017-01-25 12:18] LABS: Glucose,Whole Blood 115 mg/dL (75-99)
--- NOTE | 2017-01-25 14:34 | P.PN ---
Subjective Principal diagnosis: Patient is a pleasant 89-year-old female who is being followed by the neurology service for altered mental status. Patient was brought to the emergency room with difficulty ambulating and mental confusion. Patient does have history of Alzheimer's dementia. Computed tomography scan of the brain was done which showed generalized atrophy and small vessel ischemic changes. CT also revealed mild changes consistent with normal pressure hydrocephalus which can be worked up as an outpatient. At the time of my evaluation today, patient neurological exam has changed from yesterday. Patient is less responsive and is not conversant. Patient is going for a stat computed tomography scan of the brain. Objective - Vital Signs Vital signs: Vital Signs Temp 97.2 F L 01/25/17 12:45 Pulse 72 01/25/17 12:45 Resp 14 01/25/17 12:45 BP 123/73 01/25/17 07:00 Pulse Ox 98 01/25/17 12:45 Intake & Output 01/24/17 01/25/17 01/25/17 18:59 06:59 18:59 Intake Total 480 Balance 480 Intake: Oral 480 Other: Voiding Method Diaper Diaper Diaper Incontinent Incontinent Incontinent # Voids 1 1 # Bowel Movements 0 - Exam PHYSICAL EXAM: GENERAL APPEARANCE: Patient is a well-developed, female HEENT: Normocephalic, atraumatic, no facial asymmetry is seen. Neck is supple with no masses felt. CARDIOVASCULAR: Regular rate and rhythm. ABDOMEN: Nontender, nondistended. EXTREMITIES: Show no edema or clubbing. NEUROLOGICAL EXAM: Patient is awake but is nonverbal at this time. Patient moves all 4 extremities purposefully. Patient is not following commands. Unable to obtain sensory exam. No lateralizing weakness is seen. No obvious facial droop is noted. No tremors or seizure-like activity is seen. - Labs CBC & Chem 7: 01/22/17 18:05 01/22/17 18:05 Labs: Abnormal Lab Results - Last 24 Hours (Table) 01/25/17 Range/Units 12:06 POC Glucose (mg/dL) 115 H (75-99) mg/dL Microbiology - Last 24 Hours (Table) 01/22/17 21:35 Urine Culture - Final Urine,Voided Assessment and Plan Plan: Pressure and: 1. Altered mental status 2. Acute on chronic encephalopathy. 3. Alzheimer's dementia 4. Cervicalgia 5. Gait instability 6. Recurrent falls Recommendations: Patient's altered mental status was greatly improved this morning according to staff. As previously mentioned, patient does have history of chronic encephalopathy with Alzheimer's dementia. Due to sudden change in mentation, stat computed tomography scan is being done. As previously mentioned , no signs of lateralizing weakness or facial droop noted. Patient is afebrile. Vital signs are stable. EEG was done and results are pending. Her previous computed tomography scan of the brain did show evidence of mild normal pressure hydrocephalus. This can be worked up further in the outpatient setting. She may need a large volume drainage lumbar puncture and monitoring for improvement in gait disturbance. I recommend continuing to hold benzodiazepines. A psychiatric evaluation has been ordered. If all testing is negative, patient would be cleared for transfer to rehab from neurology standpoint. Continue with physical therapy. Continue aspirin for small vessel ischemic disease. Continue neurological checks. I will continue to follow with you. Further recommendations to follow. I performed an examination of the patient and discussed the management with the STAINED GLASS INSTALLER. I have reviewed the STAINED GLASS INSTALLER notes and agree with the findings and plan of care.
--- NOTE | 2017-01-25 15:10 | CT ---
EXAMINATION TYPE: CT brain wo con DATE OF EXAM: 01/25/2017 3:03 PM COMPARISON: 2116 HISTORY: Patient unresponsive at time of exam. Patient shows signs of altered mental status. CT DLP: [address] of the brain was performed. The ventricles, basal cisterns and sulci overlying the cerebral convexities demonstrate mild to moder ate enlargement. There is no evidence for intracranial hemorrhage or sulcal effacement. There is decreased attenuation about the periventricular white matter and deep white matter of both c erebral hemispheres, compatible with chronic small vessel ischemia. Differential diagnosis does inclu de demyelination. No mass effects are seen.No midline shift. Osseous calvarium is intact. If symptoms persist consider MRI. IMPRESSION: 1. Age related atrophic and chronic small vessel ischemic change without acute intracranial process s een at this time.
[2017-01-25 15:11] LABS: Basophils # (A) 0.1 k/uL (0-0.2); Basophils % (A) 1 %; CH 33.3; CHCM 33.7; Eosinophils # (A) 0.3 k/uL (0-0.7); Eosinophils % (A) 4 %; HCT 39.4 % (34.0-46.0); HDW 2.28; HGB 13.1 gm/dL (11.4-16.0); Luc # (Auto) 0.19; Luc % (Auto) 2; Lymphocytes # (A) 1.7 k/uL (1.0-4.8); Lymphocytes % (A) 19 %; MCH 33.1 pg (25.0-35.0); MCHC 33.3 g/dL (31.0-37.0); MCV 99.4 fL (80.0-100.0); Mean Platelet Volume 7.6; Monocytes # (A) 0.4 k/uL (0-1.0); Monocytes % (A) 4 %; Neutrophils # (A) 6.1 k/uL (1.3-7.7); Neutrophils % (A) 70 %; RBC 3.96 m/uL (3.80-5.40); RDW 12.3 % (11.5-15.5); WBC 8.7 k/uL (3.8-10.6); WBC (Perox) 9.26
[2017-01-25 15:23] LABS: ALT 16 U/L (9-52); AST 13 U/L (14-36); Alkaline Phosphatase 55 U/L (38-126); Anion Gap 10 mmol/L; Blood Urea Nitrogen 20 mg/dL (7-17); Calcium 9.2 mg/dL (8.4-10.2); Carbon Dioxide 22 mmol/L (22-30); Chloride 108 mmol/L (98-107); Glucose 100 mg/dL (74-99); Non-African American GFR(MDRD) 56 (>60 ml/min/1.73 sqM); Potassium 4.2 mmol/L (3.5-5.1); Sodium 140 mmol/L (137-145); Total Bilirubin 0.5 mg/dL (0.2-1.3); Total Protein 6.4 g/dL (6.3-8.2)
[2017-01-25 15:59] VITALS: RESP 20
[2017-01-25] MEDS: ISOSORBIDE MONONITRATE ER 30 MG TAB.ER.24H PO SCH (19:49)
[2017-01-25] MEDS: FAMOTIDINE 20 MG TAB PO SCH (20:01)
[2017-01-25] MEDS: DONEPEZIL 10 MG TAB PO SCH (20:01)
[2017-01-26 08:01] VITALS: BP 104/66; PULSE 70; TEMP 97.8
[2017-01-26] MEDS: traMADol 50 MG TAB PO SCH ×2 (09:55→13:46)
--- NOTE | 2017-01-26 10:09 | CONS ---
DATE OF CONSULTATION: 01/26/2017 REASON FOR CONSULTATION: Psychosis. HISTORY OF PRESENT ILLNESS: Patient is 89, , female who was living in assisted living with her of more than 50 years, was brought to the hospital after she was found more confused. Patient does have history of Alzheimer's dementia, but it seems that she was more confused than usual. She has been having frequent falls and complete workup including x-ray of the left shoulder and the right humerus were negative. CT scan of the brain showed atrophy. All blood workup including vitamin B12 and TSH were within normal limits. At the time of my evaluation, patient was lying in her bed. She stated that she is very cold. She is very pleasant. She talked in detail about living with her best friend and it seems that this is her and she said, "We keep each other company and we play cards and I cannot live without him". When I did ask her how many kids they have, she said "between him and I we have 22 children". There is no aggressive or combative behavior. REGARDING HER PAST PSYCHIATRIC HISTORY. I am not able to find any past psychiatric history, but it seems that the patient has been taking Celexa or citalopram 10 mg daily, Aricept 10 mg at bedtime and Ativan 0.5 twice a day p.r.n. PAST MEDICAL HISTORY: Diabetes, hypertension, Alzheimer's dementia. Her home medications are: 1. Aspirin. 2. Vitamin D3, 2000 units. 3. Aricept 10 mg at bedtime. 4. Vitamin B12, 1000 mcg once a day. 5. Pepcid 20 mg. 6. Lisinopril 10 mg daily. 7. Linagliptin 5 mg daily. 8. Imdur 30 mg at bedtime. 9. Tramadol at 50 mg 3 times a day. 10. At home, she was on Januvia 50 mg daily. SUBSTANCE ABUSE HISTORY: Patient never smoked and there is no previous history of alcohol or drug use. FAMILY HISTORY: Patient is not able to give any information about history of depression or anxiety in her family. MENTAL STATUS EXAMINATION: Patient is very pleasant elderly female. She was alert, awake. She stated that she was feeling cold. She is oriented to person. Regarding the place, she thought that she was in different apartment. She could not recall the day or the year. Her Mini-Mental Status score it is 9 from 30. Patient talked and perseverate about relationship with her . Also she talked about her attending Dr. Ryder Hui and she said more than once "I do trust him 100%". She denied any suicidal or homicide ideation. She stated that she has been not eating or sleeping for the last couple of days and when I did ask her the reason she said, "My friend that I was living with him will not be with me". Her insight and judgment are impaired. From the nursing staff I was informed that the patient was told yesterday that she is not going back to the assisted living to stay with her she has to go to physical rehab facility to improve her gait and to prevent frequent falls and when she did realize this yesterday she started getting depressed and this is explained why she has been having difficulty sleeping last night with poor appetite. IMPRESSION: 1. Delirium reaction, resolved. 2. Major neurocognitive disorder with depressed mood. RECOMMENDATION: I do recommend to avoid any benzodiazepine with the patient as this will make her more confused. Also to try to cut down the Ultram ( ) not recommended to the geriatric population. The patient has history of chronic encephalopathy with Alzheimer's dementia and seemed late stage so to continue her on Aricept. I discontinued citalopram and I will start the patient on mirtazapine, it will help to restore her sleep and her appetite. Otherwise patient can be discharged to rehab if she is medically cleared. Thank you for allowing me to participate in the care of this patient.
[2017-01-26] MEDS: LISINOPRIL 10 MG TAB PO SCH (10:32)
[2017-01-26] MEDS: LINAGLIPTIN 5 MG TABLET PO SCH (10:32)
[2017-01-26] MEDS: ASPIRIN 81 MG CHEW PO SCH (10:32)
--- NOTE | 2017-01-26 11:54 | P.PN ---
Subjective Principal diagnosis: Patient is a pleasant 89-year-old female who is being followed by the neurology service for altered mental status. Patient was brought to the emergency room with difficulty ambulating and mental confusion. Patient does have history of Alzheimer's dementia. Computed tomography scan of the brain was done which showed generalized atrophy and small vessel ischemic changes. CT also revealed mild changes consistent with normal pressure hydrocephalus which can be worked up as an outpatient. Patient had bout of decreased responsiveness and a repeat CT was done which showed no changes. Patient mentation is back at baseline at this time. Psychiatric consultation appreciated. At the time of my evaluation today, patient is sitting up in chair and is conversant. Patient remains confused but no lateralizing weakness or neurological deficit noted. Objective - Vital Signs Vital signs: Vital Signs Temp 97.8 F 01/26/17 07:00 Pulse 70 01/26/17 07:00 Resp 20 01/26/17 07:00 BP 104/66 01/26/17 07:00 Pulse Ox 95 01/26/17 07:00 Intake & Output 01/25/17 01/26/17 01/26/17 18:59 06:59 18:59 Intake Total 200 Balance 200 Intake: Oral 200 Other: Voiding Method Diaper Diaper Diaper Incontinent Incontinent Incontinent # Voids 4 2 - Exam PHYSICAL EXAM: GENERAL APPEARANCE: Patient is a well-developed, female who appears to be in no acute distress HEENT: Normocephalic, atraumatic, no facial asymmetry is seen. Neck is supple with no masses felt. CARDIOVASCULAR: Regular rate and rhythm. ABDOMEN: Nontender, nondistended. EXTREMITIES: Show no edema or clubbing. NEUROLOGICAL EXAM: Patient is awake , alert, and oriented 2. Patient unable to tell me where she is. Speech and language are normal. Strength is full in all 4 extremities. Sensory exam is normal to light touch in all 4 extremities. No facial asymmetry is seen on cranial nerve testing. No tremors or seizure- like activity is noted. - Labs CBC & Chem 7: 01/25/17 14:45 01/25/17 14:45 Labs: Abnormal Lab Results - Last 24 Hours (Table) 01/25/17 01/25/17 Range/Units 12:06 14:45 Chloride 108 H (98-107) mmol/L BUN 20 H (7-17) mg/dL Glucose 100 H (74-99) mg/dL POC Glucose (mg/dL) 115 H (75-99) mg/dL AST 13 L (14-36) U/L Assessment and Plan Plan: Pressure and: 1. Altered mental status, resolved and back at baseline 2. Acute on chronic encephalopathy. 3. Alzheimer's dementia 4. Cervicalgia 5. Gait instability 6. Recurrent falls Recommendations: Patient's mental status is back to baseline. As previously mentioned, patient does have history of chronic encephalopathy with Alzheimer's dementia. Patient does live in assisted living but will go to rehab prior to returning home. Following change in mentation yesterday, computed tomography scan of the brain was without change for any acute process. EEG was done and results are pending. Her previous computed tomography scan of the brain did show evidence of mild normal pressure hydrocephalus. This can be worked up further in the outpatient setting. She may need a large volume drainage lumbar puncture and monitoring for improvement in gait disturbance. I recommend continuing to hold benzodiazepines. A psychiatric evaluation was done and medications have been adjusted. Patient is stable for transfer to rehab from neurology standpoint. She can follow up as outpatient in the office for further workup of possible NPH. I will continue to follow with you on an as- needed basis. Feel free to call with any questions or concerns. I performed an examination of the patient and discussed the management with the ONLINE TUTOR. I have reviewed the ONLINE TUTOR notes and agree with the findings and plan of care.
[2017-01-26] MEDS: NON-FORMULARY DRUG (Lubiprostone [Amitiza] 24 MCG) PO SCH ×2 (12:17→12:23)
[2017-01-26] MEDS: CHOLECALCIFEROL 1,000 UNIT TAB PO SCH (12:19)
[2017-01-26] MEDS: CYANOCOBALAMIN 500 MCG TAB PO SCH (12:19)
[2017-01-26] MEDS: SODIUM CHLORIDE 0.9% 1,000 ML IV SCH (13:46)
[2017-01-26] MEDS ORDERED: MIRTAZAPINE 15 MG TAB PO SCH (21:00)
--- NOTE | 2017-01-29 05:25 | EEG ---
DATE OF SERVICE: 01/24/2017 REASON FOR TESTING: Altered mental status. AGE: 89Y DESCRIPTION OF THE PROCEDURE: This EEG was performed using a 21-channel digital electroencephalograph, following the international 10 to 20 system. DESCRIPTION OF THE RECORDING: From the beginning of the tracing, and with the patient's eyes closed, the background rhythm was mostly consisting of 8 Hz alpha frequency in the posterior occipital leads. No obvious asymmetry is seen. Photic stimulation was performed with a minimal driving response seen. No pathological waves were elicited. Hyperventilation was not performed. Occasional movement artifacts are seen. The patient does reach stage II of sleep during the tracing and occasional sleep spindles and K complexes are seen. No epileptiform discharges were seen. Her EKG lead showed a regular rate and rhythm. INTERPRETATION: This asleep and awake EEG can be considered within normal limits. There was no asymmetry seen. No epileptiform discharges were noticed. The absence of epileptiform discharges does not rule out the diagnosis of epilepsy, therefore, clinical correlation is recommended.
== END 2017-01-26 14:09 | DRG 56 ==
LOC: 4MS4W 16:01
PROVIDERS: ADMIT Family Medicine; ATTEND Family Medicine
DX: G30.9 Alzheimer's disease, unspecified (principal); G93.40 Encephalopathy, unspecified; G91.2 (Idiopathic) normal pressure hydrocephalus; F02.80 Dementia in other diseases classified elsewhere, unspecified severity, without behavioral disturbance, psychotic disturbance, mood disturbance, and anxiety; S06.0X9A Concussion with loss of consciousness of unspecified duration, initial encounter; F32.9 Major depressive disorder, single episode, unspecified; E11.9 Type 2 diabetes mellitus without complications; I10 Essential (primary) hypertension; I25.10 Atherosclerotic heart disease of native coronary artery without angina pectoris; M47.9 Spondylosis, unspecified; S10.93XA Contusion of unspecified part of neck, initial encounter; R29.6 Repeated falls; Z79.82 Long term (current) use of aspirin; Z91.81 History of falling; Z79.899 Other long term (current) drug therapy
CPT/HCPCS: 70450; 71020; 72125; 80053; 80061; 81003; 82607; 82747; 83036; 84443; 85025; 85027; 87086; 95819